=== PATIENT | male | born 1965 | race American Indian/Alaskan Native ===

== ENCOUNTER 2024-11-12 10:39 | Emergency (ER) | payer BC, SELFPAY ==
[2024-11-12 10:43] VITALS: BP 126/72
--- NOTE | 2024-11-12 12:39 | ED.GENMED ---
History of Present Illness
General
Chief Complaint: Cough
Source: patient
Exam Limitations: none
Time Seen by Provider: 11/12/24 12:29
Nursing documentation reviewed up to this point in time: agreed with
History of Present Illness
History of Present Illness:
Patient to ED with complaint of cough x 6 weeks. Denies fever/chills, recent illness. No SOB. He was taking lisinopril but stopped approx 1 mos ago concerned that this was causing cough. No change in symptoms. Reports yellow mucous, itchiness in
throat. Taking daily OTC allergy medicine without improvement. Brought self to ED for eval. Denies any cp/pressure, leg swelling/pain. No history of DVT, PE. Moved from [place] in he past year. No travel out of country
Past History
Past History
ED Past Medical History: Cancer (liver 2018, multiple myeloma (treated with Car T 07/2024)) and HTN
Social History
Tobacco: Non-smoker
Alcohol: None
Drug: None
Review of Systems
Review of Systems
Allergies reviewed?: Yes
All Other Systems: ROS reviewed and negative except as documented in HPI and ROS
Constitutional: Reports no symptoms
EENT: Reports no symptoms
Respiratory: Reports cough
Cardiac: Reports no symptoms
ABD/GI: Reports no symptoms
: Reports no symptoms
Musculoskeletal: Reports no symptoms
Skin: Reports no symptoms
Neurological: Reports no symptoms
Endocrine: Reports no symptoms
Hematologic/Lymphatic: Reports no symptoms
Psychiatric: Reports no symptoms
Phy Exam
General Physical Exam
General Presentation: well appearing and no apparent distress
General age: appears stated age
General Skin: warm and dry
General Habitus: normal
General Mental: alert
Cardiovascular Exam
Cardiovascular Exam: regular rate/rhythm
Pulmonary Exam
Pulmonary Exam: lungs clear and no respiratory distress (Pulse ox 97% RA)
Musculoskeletal Exam
Musculoskeletal Exam: full ROM
Skin Exam
Skin Exam: normal color, warm/dry and no rash
Psychiatric Exam
Psychiatric Exam: normal mood/affect
Course
Orders/Labs/Results
Orders:
Orders
11/12/24 12:38
CR Chest - 2 Views Urgent
Comment:
Reason For Exam: cough
11/12/24 12:43
Complete Blood Count/With Diff Urgent
Comprehensive Metabolic Panel Urgent
D-Dimer Urgent
Monotest Urgent
Comment: ADD ON
11/12/24 14:38
Add On- LAB Urgent
Tests Added?: mononucleosis
US Abdomen Complete/Upper Urgent
Comment:
Reason For Exam: elevated LFT's
Abnormal Lab Results
11/12/24
12:43
WBC 2.4 L* 10^3/uL
(4.8-10.8)
Hgb 12.8 L g/dL
(13.0-18.0)
Hct 37.2 L %
(39.0-52.0)
MCV 78.3 L fL
(80.0-94.0)
MCH 26.9 L pg
(27.0-31.0)
RDW 15.4 H %
(11.5-14.5)
Plt Count 119 L 10^3/uL
(130-400)
Absolute Neuts (auto) 0.9 L* 10^3/uL
(1.4-6.5)
Absolute Lymphs (auto) 1.0 L 10^3/uL
(1.2-3.4)
Neutrophils % 38.7 L %
(42.2-75.2)
Monocytes % 18.9 H %
(1.7-9.3)
AST 291 H U/L
(17-59)
ALT 446 H U/L
(0-50)
11/12/24 12:43
11/12/24 12:43
Vital Signs
Initial and Last Documented VS:
Initial Vital Signs
Temp Pulse Resp BP Pulse Ox
98.2 F 65 16 126/72 98
11/12/24 10:43 11/12/24 10:43 11/12/24 10:43 11/12/24 10:43 11/12/24 10:43
Last Documented Vital Signs
Temp Pulse Resp BP Pulse Ox
98.2 F 61 16 119/75 99
11/12/24 10:43 11/12/24 17:14 11/12/24 17:14 11/12/24 17:09 11/12/24 17:10
*Radiology
Radiology exam reviewed: radiology read reviewed
*Pulse Oximetry
SaO2: 98
Oxygen Mode of Delivery: Room air
Patient hypoxic: no
*Critical Care Note
Total Time (30-74mins, 75-104mins- exclusive of procedures): Not Applicable
Update Note
Update Note:
Patient to ED with complaint of cough x 6 weeks. No associated symptoms. LCTA, pulse ox 97% RA. CXR NAD. Labs reviewed. DDimer neg. Elevated LFT's. Reviewed curent results with his values from september. At that thime ALT was 258, AST 149. He
states he had been taking bactrim prophylactically and providers felt that this was causing his LFT elevation. Med was dc'd approx 3 weeks ago. LFTs today confirm that levels are continuing to rise. US completed, no findings to explain increased
levels. He will follow up with his commercial service technician. WIll discharge home, close follow upwith PCP. Given instructions on s/s to retun to ED and he is agreeable to plan
ED Attending Note
-
Portions of this chart may have been created with voice recognition software.� Occasional wrong word or��sound alike� substitutions may have occurred due to the inherent limitations of voice recognition software.
Discharge Plan
Departure
Patient Disposition: Home (Routine Discharge)
Date of Disposition: 11/12/24
Time of Disposition: 17:16
Patient with high blood pressure during this ER visit?: No
Condition: Good
Covid-19: Not Applicable
Discharge Problem:
Cough
Instructions: Cough, Adult (DC)
Prescriptions:
No Action
No Current Medications
0
Referrals:
UNKNOWN - PT DOES,NOT KNOW [Family Provider]
Activity Restrictions/Additional Instructions:
Follow up with your commercial service technician for further evaluation of your elevated liver function tests. Return to the emergency department immediately for any changes in/worsening of your symptoms.
Interventions
Interventions:
*Risk Screen - Suicide Last Done: 11/12/24 10:43
*General Assessment Last Done: 11/12/24 11:19
*Neglect/Abuse Screening Last Done: 11/12/24 10:43
*ED- Fall Risk Assessment Last Done: 11/12/24 11:19
*ED COVID-19 Vaccine History Last Done: 11/12/24 11:19
*Nursing Disposition Last Done: 11/12/24 17:23
ED- Pulmonary Assessment Last Done: 11/12/24 11:19
Discharge Date and Time
Discharge Date/Time: 11/12/24 17:30
Print Language: ISRAELI
[2024-11-12 12:45] VITALS: BP 114/76
[2024-11-12 13:03] LABS: D-Dimer 0.29 ug/mlFEU (0.00-0.50)
[2024-11-12 13:07] LABS: ALT (SGPT) 446 U/L (0-50); AST (SGOT) 291 U/L (17-59); Albumin 4.0 g/dl (3.5-5.0); Alkaline Phosphatase 65 U/L (38-126); Blood Urea Nitrogen 10 mg/dl (9-20); Calcium 9.0 mg/dl (8.4-10.2); Carbon Dioxide 26 mmol/L (22-30); Chloride 106 mmol/L (98-107); Glucose 88 mg/dl (70-99); Potassium 4.3 mmol/L (3.5-5.1); Sodium 136 mmol/L (135-145); Total Protein 6.3 g/dl (6.3-8.2); eGFR > 60.00
[2024-11-12 13:48] LABS: Hematocrit 37.2 % (39.0-52.0); Hemoglobin 12.8 g/dL (13.0-18.0); Mean Corp Hgb Conc. 34.4 g/dL (33.0-37.0); Mean Corpuscular Volume 78.3 fL (80.0-94.0); Nucleated Red Blood Cells % 0 % (-); Platelet Count 119 10^3/uL (130-400); Red Cell Dist. Width 15.4 % (11.5-14.5)
[2024-11-12 14:42] VITALS: BP 116/74
[2024-11-12 17:09] VITALS: BP 119/75
== END 2024-11-12 17:30 | disposition home or self-care (01) ==
LOC: EMR 10:39
PROVIDERS: Nurse Practitioner; EMERGENCY PHYSICIAN Emergency Medicine
DX: R05.9 Cough, unspecified (principal); R79.89 Other specified abnormal findings of blood chemistry; I10 Essential (primary) hypertension; C90.00 Multiple myeloma not having achieved remission; Z85.05 Personal history of malignant neoplasm of liver
CPT/HCPCS: 99284; 71046; 76700; 80053; 85025; 85379; 86308